=== PATIENT | female | born 1985 | race African-American/Black ===

== ENCOUNTER 2021-08-20 02:58 | Inpatient (IN) | payer OTHER ==
[2021-08-20] MEDS ORDERED: Ondansetron PF 4 MG/2 ML Vial IVP PRN (03:16)
[2021-08-20] MEDS ORDERED: Calcium Carbonate 500 MG ChewTAB PO PRN (03:16)
[2021-08-20] MEDS ORDERED: Acetaminophen 325 MG TAB PO PRN (03:16)
[2021-08-20] MEDS ORDERED: hydrALAZINE 20 MG/ML VIAL SLOW IVP PRN (03:21)
[2021-08-20] MEDS ORDERED: Potassium Chloride 20 MEQ in Premix Bag 1 BAG IVPB SCH (03:30)
[2021-08-20] MEDS ORDERED: Lactated Ringer's 1,000 ML IV SCH (03:30)
[2021-08-20 03:41] VITALS: BMI 29.6
[2021-08-20] MEDS: Thiamine HCl 200 MG/2 ML VIAL SLOW IVP SCH (04:10)
[2021-08-20 04:29] LABS: #Eosinphils 0.1 10x3/uL (0.0-0.5); #Monocytes 0.6 10x3/uL (0.0-1.1); #Neutrophils 3.6 10x3/uL (1.5-8.4); %Basophils 0.3 % (0.0-2.0); %Eosinophils 2.2 % (0.0-6.0); %Lymphocytes 32.1 % (18.0-47.0); %Monocytes 8.8 % (0.0-10.0); %Neutrophils 56.4 % (40.0-75.0); Hemoglobin 9.8 g/dL (12.0-15.5); Mean Corpuscular HGB CONC 32.8 g/dL (32.0-36.0); Mean Corpuscular Hemoglobin 29.6 pg (27.0-33.0); Mean Corpuscular Volume 90.3 fl (81.6-98.3); Mean Platelet Volume 11.1 fl (7.4-10.4); Platelet Count 233 10x3/uL (150-450); RBC Distribution Width 12.7 % (11.5-14.5); Red Blood Cell (RBC) Count 3.31 10x6/uL (3.90-5.03); White Blood Cell (WBC) Count 6.4 10x3/uL (3.5-10.5)
[2021-08-20 04:47] LABS: ALT (SGPT) 65 U/L (8-55); AST (SGOT) 82 U/L (5-34); Albumin 3.2 g/dL (3.5-5.0); Alkaline Phosphatase 53 U/L (40-110); Anion Gap 12 mmol/L (10-20); BUN (Urea Nitrogen) 15 mg/dL (7.0-18.7); Calc. Creatinine Clearance 98 mL/min (70-130); Calcium 7.5 mg/dL (7.8-10.44); Carbon Dioxide 21 mmol/L (22-29); Chloride 113 mmol/L (98-107); Glucose 83 mg/dL (70-105); Magnesium 1.5 mg/dL (1.6-2.6); Phosphorus 3.1 mg/dL (2.3-4.7); Potassium 3.1 mmol/L (3.5-5.1); Protein, Total 5.2 g/dL (6.0-8.3); Sodium 143 mmol/L (136-145)
[2021-08-20 04:58] LABS: CK (CPK) 4533 U/L (29-168)
[2021-08-20 05:04] LABS: Bilirubin, Total 0.8 mg/dL (0.2-1.2)
[2021-08-20] MEDS: Lorazepam 2 MG/ML VIAL SLOW IVP PRN ×3 (06:22→16:09)
[2021-08-20] MEDS ORDERED: Magnesium 2 GM/50 ML 2 GM in Premix Bag 1 BAG IVPB SCH (07:15)
[2021-08-20] MEDS: Dextrose 5%-Lactated Ringers 1,000 ML IV SCH ×3 (07:48→23:00)
[2021-08-20] MEDS: Enoxaparin Sodium 40 MG/0.4 ML SYRINGE SC SCH (07:49)
[2021-08-20] MEDS: Nicotine 21 MG PATCH TD SCH (07:49)
[2021-08-20] MEDS: Famotidine/PF 20 mg/2ml Vial SLOW IVP SCH ×2 (07:49→20:36)
[2021-08-20] MEDS: Potassium Chloride 20 MEQ in Premix Bag 1 BAG IVPB SCH ×2 (10:03→12:35)
[2021-08-20] MEDS ORDERED: Ziprasidone 20 MG VIAL IM SCH (11:00)
[2021-08-20 12:41] LABS: Free T4 (Free Thyroxine) 0.97 ng/dL (0.70-1.48)
[2021-08-21] MEDS: Thiamine HCl 200 MG/2 ML VIAL SLOW IVP SCH (05:00)
[2021-08-21 06:48] LABS: #Eosinphils 0.2 10x3/uL (0.0-0.5); #Monocytes 0.5 10x3/uL (0.0-1.1); #Neutrophils 4.5 10x3/uL (1.5-8.4); %Basophils 0.3 % (0.0-2.0); %Eosinophils 2.6 % (0.0-6.0); %Lymphocytes 20.5 % (18.0-47.0); %Monocytes 7.4 % (0.0-10.0); %Neutrophils 68.9 % (40.0-75.0); Hemoglobin 10.8 g/dL (12.0-15.5); Mean Corpuscular HGB CONC 31.6 g/dL (32.0-36.0); Mean Corpuscular Volume 91.7 fl (81.6-98.3); Mean Platelet Volume 11.4 fl (7.4-10.4); Platelet Count 252 10x3/uL (150-450); RBC Distribution Width 12.9 % (11.5-14.5); Red Blood Cell (RBC) Count 3.73 10x6/uL (3.90-5.03); White Blood Cell (WBC) Count 6.6 10x3/uL (3.5-10.5)
[2021-08-21 07:10] LABS: ALT (SGPT) 67 U/L (8-55); AST (SGOT) 53 U/L (5-34); Albumin 3.4 g/dL (3.5-5.0); Alkaline Phosphatase 59 U/L (40-110); Anion Gap 12 mmol/L (10-20); BUN (Urea Nitrogen) 5 mg/dL (7.0-18.7); Bilirubin, Direct 0.3 mg/dL (0.1-0.3); Bilirubin, Total 0.7 mg/dL (0.2-1.2); CK (CPK) 2272 U/L (29-168); Calc. Creatinine Clearance 111 mL/min (70-130); Carbon Dioxide 24 mmol/L (22-29); Chloride 109 mmol/L (98-107); Glucose 92 mg/dL (70-105); Magnesium 1.5 mg/dL (1.6-2.6); Potassium 3.6 mmol/L (3.5-5.1); Protein, Total 5.4 g/dL (6.0-8.3); Sodium 141 mmol/L (136-145)
[2021-08-21] MEDS ORDERED: Amlodipine 5 MG TAB PO SCH (09:00)
[2021-08-21] MEDS: Dextrose 5%-Lactated Ringers 1,000 ML IV SCH ×2 (09:30→14:24)
[2021-08-21] MEDS: Enoxaparin Sodium 40 MG/0.4 ML SYRINGE SC SCH ×2 (09:32→09:47)
[2021-08-21] MEDS: Nicotine 21 MG PATCH TD SCH (09:33)
[2021-08-21 12:05] VITALS: BP 134/84; TEMP 97.3
== END 2021-08-21 15:45 | disposition home or self-care (01) | DRG 896 ==
LOC: EEVIPCON 02:58 → CSHTELE 02:58
PROVIDERS: ADMIT Student in an Organized Health Care Education/Training Program; ATTEND Family Medicine
DX: F19.10 Other psychoactive substance abuse, uncomplicated (principal); G92.8 Other toxic encephalopathy; M62.82 Rhabdomyolysis; N17.9 Acute kidney failure, unspecified; E86.0 Dehydration; R74.01 Elevation of levels of liver transaminase levels; E87.6 Hypokalemia; I10 Essential (primary) hypertension; F41.9 Anxiety disorder, unspecified; F32.A Depression, unspecified; R77.8 Other specified abnormalities of plasma proteins; G43.909 Migraine, unspecified, not intractable, without status migrainosus; Z98.51 Tubal ligation status; Z87.891 Personal history of nicotine dependence
CPT/HCPCS: 36415; 36416; 80048; 80053; 80076; 82140; 82550; 83735; 84100; 84439; 84481; 85025; 94760; J0360; J1650; J2060; J3411; J3475; J3480; J3486; J7120; S0028

== ENCOUNTER 2022-11-17 20:01 | Emergency (ER) | payer OTHER ==
[2022-11-17 20:37] LABS: #Eosinphils 0.2 10x3/uL (0.0-0.5); #Monocytes 0.4 10x3/uL (0.0-1.1); %Basophils 0.5 % (0.0-2.0); %Eosinophils 2.3 % (0.0-6.0); %Lymphocytes 28.7 % (18.0-47.0); %Monocytes 5.9 % (0.0-10.0); %Neutrophils 62.3 % (40.0-75.0); Hemoglobin 12.9 g/dL (12.0-15.5); Mean Corpuscular HGB CONC 32.3 g/dL (32.0-36.0); Mean Corpuscular Hemoglobin 29.3 pg (27.0-33.0); Mean Corpuscular Volume 90.9 fl (81.6-98.3); RBC Distribution Width 14.3 % (11.5-14.5); White Blood Cell (WBC) Count 6.5 10x3/uL (3.5-10.5)
[2022-11-17 20:43] LABS: AST (SGOT) 28 U/L (5-34); Albumin 4.3 g/dL (3.5-5.0); Anion Gap 16 mmol/L (10-20); Bilirubin, Total 0.4 mg/dL (0.2-1.2); Calc. Creatinine Clearance 0 mL/min (70-130); Calcium 8.5 mg/dL (7.8-10.44); Carbon Dioxide 16 mmol/L (22-29); Chloride 109 mmol/L (98-107); Estimated GFR 68; Globulin 3.1 g/dL (2.4-3.5); Glucose 67 mg/dL (70-105); Potassium 3.2 mmol/L (3.5-5.1); Protein, Total 7.4 g/dL (6.0-8.3); Sodium 138 mmol/L (136-145)
[2022-11-17 20:48] LABS: Platelet Morphology Comment PLT clumps seen-ADEQ
[2022-11-17 20:49] LABS: Mean Platelet Volume 11.6 fl (7.4-10.4); Platelet Count 212 10x3/uL (150-450)
[2022-11-17 20:57] LABS: ALT (SGPT) 19 U/L (8-55); Alkaline Phosphatase 77 U/L (40-110); BUN (Urea Nitrogen) 12 mg/dL (7.0-18.7)
[2022-11-17 21:00] LABS: Bilirubin Neg (Negative); Blood, Urine 250 (Negative); Glucose, Urine (Dipstick) Normal (Negative); Ketone, Urine Negative (Negative); Leukocyte 25 (Negative); Nitrite Negative (Negative); Protein, Urine (Dipstick) 100 mg/dl (Neg-Trace); Urobilinogen Normal mg/dL (Less than 2)
[2022-11-17 21:02] LABS: Clarity Clear (Clear)
[2022-11-17 21:09] LABS: Amphetamine Not Detected (NotDetected); Barbiturates Screen Not Detected (NotDetected); Benzodiazepine Screen Not Detected (NotDetected); Cocaine Metabolite Screen Not Detected (NotDetected); Methadone Not Detected (NotDetected); Methamphetamine Not Detected (NotDetected); Opiate Screen Not Detected (NotDetected); Oxycodone Screen Not Detected (NotDetected); Phencyclidine (PCP) Not Detected (NotDetected); THC/Cannabinoid Screen Not Detected (NotDetected); Tricyclic Screen Not Detected (NotDetected)
[2022-11-17 21:25] LABS: Bacteria/HPF Rare-Few HPF (None Seen); RBC/HPF Greater than 50 HPF (0-3); Squamous Epithelial 0-3 HPF (0-3); WBC/HPF 0-3 HPF (0-3)
[2022-11-17] MEDS ORDERED: Potassium Bicarbonate/Cit Ac 25 MEQ TAB ONE (21:43)
== END 2022-11-17 22:43 | disposition home or self-care (01) ==
LOC: CSHERS 20:01
DX: I47.1 Supraventricular tachycardia (principal); I10 Essential (primary) hypertension; E87.6 Hypokalemia; F17.210 Nicotine dependence, cigarettes, uncomplicated
CPT/HCPCS: 36415; 36416; 71045; 80053; 80306; 81003; 81015; 84484; 85025; 93005; 94760